=== PATIENT | male | born 1950 | race Caucasian/White ===

== ENCOUNTER 2021-09-10 14:48 | Emergency (ER) | payer MEDICARE, MEDICAID ==
[~2021-09-10] VITALS: Ht 175.3 cm; Wt 95.5 kg
[2021-09-10] MEDS ORDERED: TraMADol HCL 50 MG TABLET PO ONE (17:15)
[2021-09-10] MEDS ORDERED: MUPIROCIN CALCIUM 2% 22 GM OINTMENT TP ONE (17:15)
[2021-09-10] MEDS ORDERED: GABAPENTIN 100 MG CAPSULE PO ONE (17:15)
[2021-09-10] MEDS ORDERED: PERTUSS(ACELL),DIPH,TET VAC/PF 0.5 ML SYRINGE IM. ONE (17:30)
[2021-09-10 18:42] VITALS: BP 161/94
== END 2021-09-10 19:18 | disposition home or self-care (01) ==
LOC: EMS 15:13
DX: S90.822A Blister (nonthermal), left foot, initial encounter (principal); S90.821A Blister (nonthermal), right foot, initial encounter; X58.XXXA Exposure to other specified factors, initial encounter; L03.115 Cellulitis of right lower limb; L03.116 Cellulitis of left lower limb; E11.9 Type 2 diabetes mellitus without complications; I10 Essential (primary) hypertension; F17.210 Nicotine dependence, cigarettes, uncomplicated; Y93.89 Activity, other specified; Y92.89 Other specified places as the place of occurrence of the external cause; Y99.8 Other external cause status
CPT/HCPCS: 82962; 99284